=== PATIENT | male | born 1985 | race Caucasian/White ===

== ENCOUNTER 2023-08-23 12:36 | Emergency (ER) | payer BC, SELFPAY ==
[2023-08-23 12:38] VITALS: BP 142/92
[2023-08-23 12:40] VITALS: BMI 30.7
--- NOTE | 2023-08-23 14:08 | ED.GENMED ---
History of Present Illness
<Ravinder Covarrubias DO - Last Filed: 08/23/23 14:11>
General
Chief Complaint: Anxiety
Source: patient
Exam Limitations: none
Time Seen by Provider: 08/23/23 13:48
Nursing documentation reviewed up to this point in time: agreed with
Travel History
Have you had any contact with someone who has COVID-19?: No
Do you have any symptoms of coronavirus? Fever > 100 degrees, chills, cough, shortness of breath, sore throat, loss of taste or smell, muscle aches, or headache?: No
History of Present Illness
History of Present Illness:
38-year-old male presents emergency department due to an episode where he felt numbness in his neck and the back of his head. This occurred when he was at work. It has somewhat dissipated.
Past History
<Ravinder Covarrubias, DO - Last Filed: 08/23/23 14:11>
Past History
ED Past Medical History: GERD and Other (Hydrocele)
ED Past Surgical History: Orthopedic (Right ACL, left leg fracture) and Other (Left hydrocele repair)
Social History
Tobacco: Smoker
Alcohol: None
Drug: None
Living: with family
Employment: Employed
Review of Systems
<Ravinder Covarrubias DO - Last Filed: 08/23/23 14:11>
Review of Systems
Allergies reviewed?: Yes
All Other Systems: Not applicable
Constitutional: Reports no symptoms
EENT: Reports no symptoms
Respiratory: Reports no symptoms
Cardiac: Reports no symptoms
ABD/GI: Reports no symptoms
: Reports no symptoms
Musculoskeletal: Reports no symptoms
Skin: Reports no symptoms
Neurological: Reports dizzy and numbness
Endocrine: Reports no symptoms
Hematologic/Lymphatic: Reports no symptoms
Psychiatric: Reports no symptoms
Phy Exam
<Ravinder Covarrubias, DO - Last Filed: 08/23/23 14:11>
Physical Exam
Physical Exam:
Physical Exam
General: no apparent distress, not acutely ill
Neck: supple. no meningeal signs. normal posterior pharynx
Heart: s1/s2 regular rate and rhythm, no murmur. equal radial
pulses.
HEENT: Pupils equal round reactive to light, EOMI
Lungs: no acute respiratory distress. clear bilaterally
Abdomen: normal bowel sounds. not tender. no CVAT
Neuro: alert and oriented. no focal neurological deficits cranial nerves II through XII intact
Skin: no rash
Psychiatric: well kept. interactive and cooperative
Extremities: no edema. no calf tenderness. negative homans. good distal pulses
Course
<Ravinder Covarrubias, DO - Last Filed: 08/23/23 14:11>
Orders/Labs/Results
Orders:
Orders
08/23/23 14:05
CT Head W/o Iv Contrast Urgent
Comment:
Reason For Exam: head numbness
08/23/23 14:06
EKG- Treatment ONCE
08/23/23 14:07
Electrocardiogram (*1) Urgent
Reason for Study: Chest Pain
08/23/23 15:15
IV Insert/Care/Rem.- Treatment PRN
MR Brain W/o & With Contrast Urgent
Reason For Exam: numbness back of neck, head, ICA aneurysm cav sinu
Recent pill cam endoscopy?: No
Pacemaker/Defibrillator?: No
Brain Aneurysm Clips?: No
Have you ever worked with metal? grinding metal? welding?: No
Cochlear(ear) implants?: No
Does Pt have a Temp Sensing Cath?: No
Does the patient have IV access?: No
Does the patient have any stents?: No
Neck With Contrast MRA [MA Neck With Contrast] Urgent
Comment:
Reason For Exam: numbness back of neck, head, ICA aneurysm cav sinu
Recent pill cam endoscopy?: No
08/23/23 15:21
[facility] mra [[facility]] Urgent
Comment:
Reason For Exam: numbness back of neck, head, ICA aneurysm cav sinu
OK for patient to be off Cardiac Monitoring for MRI: Yes
Recent pill cam endoscopy?: No
Pacemaker/Defibrillator?: No
Brain Aneurysm Clips?: No
Have you ever worked with metal? grinding metal? welding?: No
Cochlear(ear) implants?: No
Does Pt have a Temp Sensing Cath?: No
Does the patient have IV access?: No
Does the patient have any stents?: No
08/23/23 15:41
Complete Blood Count/With Diff Urgent
Comprehensive Metabolic Panel Urgent
Abnormal Lab Results
08/23/23
15:41
BUN 21 H mg/dl
(02-14)
08/23/23 15:41
08/23/23 15:41
Vital Signs
Initial and Last Documented VS:
Initial Vital Signs
Temp Pulse Resp BP Pulse Ox
98.9 F 80 20 142/92 98
08/23/23 12:38 08/23/23 12:38 08/23/23 12:38 08/23/23 12:38 08/23/23 12:38
Last Documented Vital Signs
Temp Pulse Resp BP Pulse Ox
98.9 F 70 20 130/90 98
08/23/23 12:38 08/23/23 17:55 08/23/23 17:55 08/23/23 17:55 08/23/23 12:38
<Sharath Denney MD - Last Filed: 08/23/23 21:58>
Orders/Labs/Results
Orders:
Orders
08/23/23 14:05
CT Head W/o Iv Contrast Urgent
Comment:
Reason For Exam: head numbness
08/23/23 14:06
EKG- Treatment ONCE
08/23/23 14:07
Electrocardiogram (*1) Urgent
Reason for Study: Chest Pain
08/23/23 15:15
IV Insert/Care/Rem.- Treatment PRN
MR Brain W/o & With Contrast Urgent
Reason For Exam: numbness back of neck, head, ICA aneurysm cav sinu
Recent pill cam endoscopy?: No
Pacemaker/Defibrillator?: No
Brain Aneurysm Clips?: No
Have you ever worked with metal? grinding metal? welding?: No
Cochlear(ear) implants?: No
Does Pt have a Temp Sensing Cath?: No
Does the patient have IV access?: No
Does the patient have any stents?: No
Neck With Contrast MRA [MA Neck With Contrast] Urgent
Comment:
Reason For Exam: numbness back of neck, head, ICA aneurysm cav sinu
Recent pill cam endoscopy?: No
08/23/23 15:21
[facility] mra [MA [facility]] Urgent
Comment:
Reason For Exam: numbness back of neck, head, ICA aneurysm cav sinu
OK for patient to be off Cardiac Monitoring for MRI: Yes
Recent pill cam endoscopy?: No
Pacemaker/Defibrillator?: No
Brain Aneurysm Clips?: No
Have you ever worked with metal? grinding metal? welding?: No
Cochlear(ear) implants?: No
Does Pt have a Temp Sensing Cath?: No
Does the patient have IV access?: No
Does the patient have any stents?: No
08/23/23 15:41
Complete Blood Count/With Diff Urgent
Comprehensive Metabolic Panel Urgent
Abnormal Lab Results
08/23/23
15:41
BUN 21 H mg/dl
(9-20)
08/23/23 15:41
08/23/23 15:41
Vital Signs
Initial and Last Documented VS:
Initial Vital Signs
Temp Pulse Resp BP Pulse Ox
98.9 F 80 20 142/92 98
08/23/23 12:38 08/23/23 12:38 08/23/23 12:38 08/23/23 12:38 08/23/23 12:38
Last Documented Vital Signs
Temp Pulse Resp BP Pulse Ox
98.9 F 70 20 130/90 98
08/23/23 12:38 08/23/23 17:55 08/23/23 17:55 08/23/23 17:55 08/23/23 12:38
<Sharath Denney MD - Last Filed: 08/23/23 21:58>
*Critical Care Note
Total Time (30-74mins, 75-104mins- exclusive of procedures): Not Applicable
<Sharath Denney MD - Last Filed: 08/23/23 21:58>
Update Note
Update Note:
Per signout, MRA/MRI report reviewed - no acute findings. Pt will be advised to f/u with PCP for further evaluation and treatment.
ED Attending Note
<Ravinder Covarrubias DO - Last Filed: 08/23/23 14:11>
-
Portions of this chart may have been created with voice recognition software.� Occasional wrong word or��sound alike� substitutions may have occurred due to the inherent limitations of voice recognition software.
Discharge Plan
Departure
Patient Disposition: Home (Routine Discharge)
Date of Disposition: 08/23/23
Time of Disposition: 18:41
Patient with high blood pressure during this ER visit?: Yes
Discharge Problem:
Paresthesia
Instructions: Paresthesia (DC)
Prescriptions:
No Action
ibuprofen 200 MG tablet
400 mg PO Q4HPRN PRN (Reason: joint pain)
Referrals:
Venu Leyva MD [Active] -
UNKNOWN - PT DOES,NOT KNOW [Family Provider] -
Activity Restrictions/Additional Instructions:
As discussed, please follow up with your primary care physician and/or referred neurologist for further evaluation and treatment.
Interventions
Interventions:
*Risk Screen - Suicide Last Done: 08/23/23 12:40
*General Assessment Last Done: 08/23/23 13:11
*Neglect/Abuse Screening Last Done: 08/23/23 12:40
ED- Fall Risk Assessment Last Done: 08/23/23 18:47
*ED COVID-19 Vaccine History Last Done: 08/23/23 12:40
*Nursing Disposition Last Done: 08/23/23 18:47
ED-Psychological Assessment Last Done: 08/23/23 13:11
Discharge Date and Time
Discharge Date/Time: 08/23/23 18:48
Print Language: VIET[place]ESE
[2023-08-23 15:59] LABS: % Basophils 0.8 % (0-2); % Eosinophils 1.5 % (0-6); % Immature Granulocytes 0.1 % (0-0.5); % Lymphocytes 30.3 % (20.5-51.1); % Monocytes 7.5 % (1.7-9.3); % Neutrophils 59.8 % (42.2-75.2); Absolute Basophils 0.1 10^3/uL (0-0.2); Absolute Eosinophils 0.1 10^3/uL (0-0.7); Absolute Lymphocytes 2.2 10^3/uL (1.2-3.4); Absolute Monocytes 0.6 10^3/uL (0.1-0.6); Absolute Neutrophils 4.4 10^3/uL (1.4-6.5); Hematocrit 42.6 % (39.0-52.0); Hemoglobin 15.1 g/dL (13.0-18.0); Mean Corp Hgb Conc. 35.4 g/dL (33.0-37.0); Mean Corpuscular Hgb 30.8 pg (27.0-31.0); Mean Corpuscular Volume 86.8 fL (80.0-94.0); Mean Platelet Volume 8.6 fL (7.4-10.4); Nucleated Red Blood Cells % 0 % (-); Platelet Count 318 10^3/uL (130-400); Red Blood Cell Count 4.91 10^6/uL (4.70-6.10); Red Cell Dist. Width 11.8 % (11.5-14.5); White Blood Cell Count 7.3 10^3/uL (4.8-10.8)
[2023-08-23 16:03] LABS: ALT (SGPT) 50 U/L (0-50); AST (SGOT) 27 U/L (17-59); Albumin 4.8 g/dl (3.5-5.0); Alkaline Phosphatase 51 U/L (38-126); Blood Urea Nitrogen 21 mg/dl (9-20); Calcium 10.2 mg/dl (8.4-10.2); Carbon Dioxide 27 mmol/L (22-30); Chloride 103 mmol/L (98-107); Estimated Creatinine Clearance > 125 ml/min; Glucose 90 mg/dl (70-99); Sodium 138 mmol/L (135-145); Total Bilirubin 0.4 mg/dl (0.2-1.3); Total Protein 7.1 g/dl (6.3-8.2); eGFR > 60.00
[2023-08-23 17:55] VITALS: BP 130/90
== END 2023-08-23 18:48 | disposition home or self-care (01) ==
LOC: EMR 12:36
PROVIDERS: EMERGENCY PHYSICIAN Emergency Medicine
DX: R20.0 Anesthesia of skin (principal); R42 Dizziness and giddiness; R20.2 Paresthesia of skin; F17.200 Nicotine dependence, unspecified, uncomplicated; R03.0 Elevated blood-pressure reading, without diagnosis of hypertension
CPT/HCPCS: 99285; 70450; 70544; 70548; 70553; 80053; 85025; 93005; A9585